=== PATIENT | male | born 2000 | race African-American/Black ===

== ENCOUNTER 2023-03-10 00:31 | Emergency (ER) | payer SELFPAY ==
[~2023-03-10] VITALS: Ht 188 cm; Wt 73.0 kg
[2023-03-10 00:34] VITALS: BP 122/78; PULSE 86; RESP 18; TEMP 97.8; O2SAT 98
[2023-03-10] MEDS ORDERED: NAPR275T96 MT (00:35)
[2023-03-10] MEDS ORDERED: BACL-141 MT (00:35)
[2023-03-10] MEDS ORDERED: ACETAMINOPHEN 325MG TABLET PO ONE (00:45)
== END 2023-03-10 01:15 | disposition home or self-care (01) ==
LOC: ER 01:05
DX: S13.4XXA Sprain of ligaments of cervical spine, initial encounter (principal); V49.49XA Driver injured in collision with other motor vehicles in traffic accident, initial encounter; Y93.89 Activity, other specified; Y92.89 Other specified places as the place of occurrence of the external cause; Y99.8 Other external cause status
CPT/HCPCS: 99283